=== PATIENT | male | born 1950 | race Caucasian/White ===

== ENCOUNTER 2018-09-28 10:34 | Emergency (ER) | payer MEDICARE, SELFPAY ==
[2018-09-28 10:35] VITALS: BP 145/122; PULSE 72; RESP 18; TEMP 36.4; O2SAT 98; BMI 41.9
--- NOTE | 2018-09-28 10:43 | RAD_ITS ---
STUDY: X-RAY - LEFT HUMERUS REASON FOR EXAM: Male, 68 years old. Fell 2 days ago. TECHNIQUE: 4 view(s) of the humerus. COMPARISON: None. FINDINGS: Normal visualized humerus. There is no demonstrated fracture or osseous destructive process. There are multiple well-circumscribed calcific densities along the dorsal aspect of the elbow and proximal forearm that appear to be benign stromal calcifications. There is associated soft tissue swelling overlying the olecranon. RAD/Humerus min 2 Views IMPRESSION: No acute osseous injury. Soft tissue swelling overlying the olecranon. Indeterminate rounded calcific densities projecting over the soft tissues of the proximal dorsal forearm and elbow, likely dermal in nature recommend clinical correlation. Electronically Signed: Diana Strauss MD at 11:35 EST Tel , Service support ,
--- NOTE | 2018-09-28 10:43 | RAD_ITS ---
STUDY: X-RAY CHEST REASON FOR EXAM: Male, 68 years old. Fell 2 days ago. TECHNIQUE: AP and lateral views of the chest. COMPARISON: None. FINDINGS: There is a left basilar streaky opacity. Normal size heart. Normal mediastinum and dannielle. Normal visualized pulmonary arteries. Normal visualized aortic arch and descending thoracic aorta. There are diffuse degenerative changes of the visualized thoracic spine. Normal visualized ribs, clavicles, and shoulders. Is evidence of a prior anterior fusion of the lower cervical spine. There is no demonstrated abnormality of the visualized soft tissue structures of the upper abdomen. RAD/Chest PA and Lateral IMPRESSION: Minimal left basilar atelectasis. Electronically Signed: Diana Strauss MD at 11:32 EST Tel , Service support ,
[2018-09-28 10:53] VITALS: BP 132/90; PULSE 71; O2SAT 99
--- NOTE | 2018-09-28 12:20 | ED.DCSUM_ITS ---
- ER Visit Summary Date of Service: 09/28/18 Chief Complaint: Left shoulder injury History of Present Illness: The patient is a 68 M who states that he tripped on a rug falling on outstretched hand 5 days ago. Since that time he had pain in the left shoulder with limited range of motion. He notes that he is on Xarelto cannot tell me why. He notes a large area of bruising on the left anterior mid axillary and posterior chest christian. He notes bruising over the medial aspect of the upper left arm. He states that his friend was coming to [place] today and he wanted to come along because he is always gotten good care in town. Physical Examination: Afebrile vital signs stable Gen: Well-nourished well-developed Head: Normocephalic atraumatic Eyes: Perrl EOMI ENT: TMs clear no rhinorrhea moist mucous membranes Neck: Supple no lymphadenopathy no JVD nontender CVS: Regular rate rhythm no murmurs normal S1-S2 Respiratory: No distress clear to auscultation bilaterally chest nontender Abdomen: Soft nontender nondistended normal bowel sounds no masses Back: Nontender Extremity: Mid range of motion at the left shoulder joint. Tender to palpation there is a large area of ecchymosis over the left side of the chest. Also area of ecchymosis over the medial aspect of the left arm. Negative Seth's test. Skin: Normal color no rash Neuro: alert orientated ?3 CN II-XII intact normal strength sensation reflexes gait cerebellar Psych: Normal affect normal mood Test Results: Chest x-ray and humerus films were negative for fracture. Emergency Department Course and Treatment: I will write for pain medication and a sling. He is to follow-up with orthopedics. We talked about frozen shoulder. We talked about rotator cuff tears and labral tears. Impression: 1. Left shoulder sprain This note was generated with [employer] dictation software. It may contain incorrect words, spelling, and punctuation that were not noted in review of the chart prior to signing ED Disposition - Plan for ED Patient: Disposition: Home or Assisted Living Chief Complaint: Fall Instructions: ED Sprain Shoulder Prescriptions: Hydrocodone Bitart/Apap 5-325 [[place] 5MG-325MG] 1 tab PO Q6H PRN PRN 3 Days #12 tab PRN Reason: Pain Referrals: Kenyon Crump MD [STAFF PHYSICIAN] - 1-2 Weeks
[2018-09-28 12:35] VITALS: BP 151/78; PULSE 65; RESP 14; O2SAT 98
== END 2018-09-28 12:39 | disposition home or self-care (01) ==
PROVIDERS: Emergency Provider Emergency Medicine; Family Provider Family Medicine; PCP Family Medicine
DX: S43.402A Unspecified sprain of left shoulder joint, initial encounter (principal); E66.9 Obesity, unspecified; Z79.02 Long term (current) use of antithrombotics/antiplatelets; W18.09XA Striking against other object with subsequent fall, initial encounter; Y93.01 Activity, walking, marching and hiking; Y92.009 Unspecified place in unspecified non-institutional (private) residence as the place of occurrence of the external cause; Y99.8 Other external cause status
CPT/HCPCS: 71046; 73060; 99282